=== PATIENT | male | born 1940 | race Hispanic/Latino ===

== ENCOUNTER 2019-01-01 06:49 | Inpatient (IN) | payer MEDICARE, OTHER ==
[2018-12-29 08:25] VITALS: BMI 30.1
[2019-01-01] MEDS ORDERED: Bacitracin Ointment 30 GM TUBE ONE (07:34)
[2019-01-01] MEDS ORDERED: EPINEPHrine 1 mg/ml (1:1000) Inj ONE (07:34)
[2019-01-01] MEDS ORDERED: Absorbable Gelatin Sponge Size 12-7 ONE (07:34)
[2019-01-01] MEDS ORDERED: Thrombin Topical 5,000 Int Units Spray Kit ONE (07:35)
[2019-01-01] MEDS ORDERED: Propofol 10 mg/ml Inj (20 ML) ONE (07:47)
[2019-01-01] MEDS ORDERED: Phenylephrine 10 mg/ml Inj ONE (07:47)
[2019-01-01] MEDS ORDERED: Rocuronium 10 mg/ml (5 ml) ONE ×2 (07:47→13:29)
[2019-01-01] MEDS ORDERED: Morphine 1 mg/ml preservative-free Inj(Duramorph) ONE (07:51)
--- NOTE | 2019-01-01 08:01 | CP.PCM.HP ---
<Yuly Kenny - Last Filed: 01/01/19 09:11> History of Present Illness - History of Present Illness History of Present Illness: CC: R hip pain 78 year old male patient, with PMHx of DM, HTN, GERD, seen and evaluated in [facility] surgery for R hip osteoarthritis. Patient states that his R hip has been causing pain for over two years. He has failed conservative treatment and now requires surgical intervention. Patient going to surgery today with Dr. Yoder for R total hip replacement. Patient states that he has had surgery in the past and denies any adverse reactions to anesthesia. NPO status was confirmed. Denies nausea/vomiting/fever/shortness of breath/chest pain. PMD: Dr. Jose Maria Smith PMHx: HTN, DM, GERD, BPH PSHx: R ankle ORIF, Inguinal hernia repair, Umbilical hernia repair, R shoulder ORIF Meds: Metformin, Losartan, Protonix SHx: Former cigarette use, current cigar use (1-2x per week), social alcohol use, denies drug use ALL: Levofloxacin (anaphylaxis) Present on Admission - Present on Admission Any Indicators Present on Admission: No Review of Systems - Constitutional Constitutional: As Per HPI - EENT Eyes: As Per HPI - Cardiovascular Cardiovascular: As Per HPI - Respiratory Respiratory: As Per HPI. absent: Cough, Wheezing - Gastrointestinal Gastrointestinal: As Per HPI - Musculoskeletal Additional comments: Right hip pain - Integumentary Integumentary: As Per HPI - Neurological Neurological: As Per HPI - Psychiatric Psychiatric: As Per HPI - Hematologic/Lymphatic Hematologic: As Per HPI Past Patient History - Past Medical History & Family History Past Medical History?: Yes - Past Social History Smoking Status: Former Smoker - CARDIAC Hx Hypertension: Yes - ENDOCRINE/METABOLIC Hx Endocrine Disorders: Yes Hx Diabetes Mellitus Type 2: Yes - SURGICAL HISTORY Hx Surgeries: Yes Meds Allergies/Adverse Reactions: Allergies Allergy/AdvReac Type Severity Reaction Status Date / Time levofloxacin [From Levaquin] Allergy ANAPHYLAXIS Verified 12/29/18 08:26 lactose AdvReac DIARRHEA Verified 12/29/18 08:26 Physical Exam - Constitutional Appears: Well, Non-toxic, No Acute Distress - Head Exam Head Exam: ATRAUMATIC, NORMOCEPHALIC - Eye Exam Eye Exam: Normal appearance Pupil Exam: NORMAL ACCOMODATION - ENT Exam ENT Exam: Mucous Membranes Moist - Respiratory Exam Respiratory Exam: Clear to Auscultation Bilateral, NORMAL BREATHING PATTERN - Cardiovascular Exam Cardiovascular Exam: REGULAR RHYTHM - GI/Abdominal Exam GI & Abdominal Exam: Normal Bowel Sounds, Soft - Extremities Exam Extremities exam: Negative for: calf tenderness Additional comments: Right hip tenderness with AROM and PROM - Neurological Exam Neurological exam: Alert, Normal Gait, Oriented x3 - Psychiatric Exam Psychiatric exam: Normal Affect, Normal Mood Results - Labs Result Diagrams: 01/01/19 07:35 Assessment & Plan - Assessment and Plan (Free Text) Assessment: 78 year old male patient, with PMHx of DM, HTN, GERD, with right hip osteoarthritis; surgery today for R THR. Plan: 1) Right hip osteoarthritis - Acute - Plan for OR today for R total hip replacement with Dr. Yoder - Patient medically optimized for surgery - Medical clearance from PMD in chart- CBC, CXR, EKG reviewed - NPO status confirmed - PT consult, reccs appreciated 2) DMII - Chronic - ACHS - Sliding scale 3) HTN - Chronic - C/w home meds after surgery 4) BPH - Chronic 4) DVT prophylaxis: -SCDs - Date & Time Date: 01/01/19 Time: 08:04 <Brissa Tamayo - Last Filed: 01/01/19 13:01> Results - Vital Signs Recent Vital Signs: Last Vital Signs Temp 97.9 F 01/01/19 08:00 Pulse 78 01/01/19 08:00 Resp 18 01/01/19 08:00 BP 165/82 H 01/01/19 08:00 Pulse Ox 100 01/01/19 08:00 - Labs Result Diagrams: 01/01/19 07:35 Labs: Laboratory Results - last 24 hr 01/01/19 01/01/19 01/01/19 07:35 07:35 08:40 WBC 7.3 RBC 4.22 L Hgb 13.5 Hct 38.4 MCV 91.2 MCH 32.0 H MCHC 35.2 RDW 12.5 Plt Count 202 MPV 8.4 Neut % (Auto) 76.2 H Lymph % (Auto) 16.2 L Dunn % (Auto) 6.3 Eos % (Auto) 1.1 Baso % (Auto) 0.2 Neut # (Auto) 5.6 Lymph # (Auto) 1.2 Dunn # (Auto) 0.5 Eos # (Auto) 0.1 Baso # (Auto) 0.0 POC Glucose (mg/dL) 127 H Blood Type A POSITIVE Blood Type Confirm Antibody Screen Negative Crossmatch See Detail BBK History Checked No verified bt 01/01/19 09:43 WBC RBC Hgb Hct MCV MCH MCHC RDW Plt Count MPV Neut % (Auto) Lymph % (Auto) Dunn % (Auto) Eos % (Auto) Baso % (Auto) Neut # (Auto) Lymph # (Auto) Dunn # (Auto) Eos # (Auto) Baso # (Auto) POC Glucose (mg/dL) Blood Type Blood Type Confirm A POSITIVE Antibody Screen Crossmatch BBK History Checked Attending/Attestation - Attestation I have personally seen and examined this patient.: Yes I have fully participated in the care of the patient.: Yes I have reviewed all pertinent clinical information: Yes Notes (Text): Right Hip Primary Osteoarthritis -plan for Right THR by Dr Yoder - pt failed conservative mgt - medically optimized for the surgery as an outpt - Pain mgt -PT/OT - DVT proph post op
[2019-01-01 08:05] LABS: BASO % 0.2 % (0.0-2.0); EOS # 0.1 K/uL (0.0-0.7); EOS % 1.1 % (0.0-4.0); HEMOGLOBIN 13.5 g/dL (12.0-18.0); LYMPH # 1.2 K/uL (1.0-4.3); LYMPH % 16.2 % (20.0-40.0); MEAN CELL VOLUME 91.2 fl (80.0-94.0); MEAN CORPUSCULAR HGB CONC 35.2 g/dL (33.0-37.0); MEAN PLATELET VOLUME 8.4 fl (7.2-11.7); MONO # 0.5 K/uL (0.0-0.8); MONO % 6.3 % (0.0-10.0); NEUT # 5.6 K/uL (1.8-7.0); NEUT % 76.2 % (50.0-75.0); RBC 4.22 Mil/uL (4.40-5.90); RED CELL DISTRIBUTION WIDTH 12.5 % (11.5-14.5); WHITE BLOOD COUNT 7.3 K/uL (4.8-10.8)
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
[2019-01-01] MEDS ORDERED: Lactated Ringer's 1,000 ML IV ONE ×3 (09:00→17:00)
[2019-01-01] MEDS ORDERED: Tranexamic Acid 1,000 MG in Sodium Chloride 0.9% 100 ML IVPB SCH (10:00)
[2019-01-01] MEDS ORDERED: Lidocaine 4% (Laryng-O-Jet) Kit MM ONE (10:30)
[2019-01-01] MEDS ORDERED: Succinylcholine Chloride 20 mg/ml Syr (5 ml) IV ONE (11:00)
[2019-01-01] MEDS ORDERED: Dexamethasone 4 mg/1 ml ONE (11:57)
[2019-01-01] MEDS ORDERED: Tranexamic Acid 100 mg/ml IV ONE (12:00)
[2019-01-01] MEDS ORDERED: ePHEDrine 50 mg/ml Inj ONE (12:36)
[2019-01-01] MEDS ORDERED: HEMOSTATIC MATRIX 10 ML DIS.NEEDLE TOP ONE (12:53)
[2019-01-01] MEDS ORDERED: Sodium Chloride 0.9% 500 ML IV ONE (13:00)
[2019-01-01] MEDS ORDERED: Neostigmine 1:1000 (1 mg/ml) Inj ONE (14:11)
--- NOTE | 2019-01-01 14:40 | RAD ---
Date of service: 01/01/2019 PROCEDURE: Intraoperative Fluoroscopy. HISTORY: RIGHT HIP FINDINGS: Fluoroscopic assistance was provided. Fluoroscopy time = 10.1 sec. Radiation dose = 2.30 mGy. Please refer to the operative report from ISMAEL Tavares.
[2019-01-01] MEDS ORDERED: oxyCODONE 5 mg Immediate Release Tab PO PRN (14:46)
[2019-01-01] MEDS ORDERED: HYDROmorphone 0.5 mg/0.5 ml ISec IVP PRN (14:52)
[2019-01-01] MEDS ORDERED: Lactated Ringer's 1,000 ML IV SCH (15:00)
--- NOTE | 2019-01-01 16:12 | RAD ---
PROCEDURE: Right Hip Radiographs. HISTORY: s/p R LOLI COMPARISON: None. FINDINGS: BONES: Status post right total hip replacement with satisfactory alignment. Expected postoperative changes within the surrounding soft tissues. JOINTS: Arthritic changes left hip SOFT TISSUES: As above OTHER FINDINGS: None. IMPRESSION: Status post right total hip replacement with satisfactory alignment. Expected postoperative changes within the surrounding soft tissues.
[2019-01-01] MEDS: Insulin Lispro (humaLOG) 100 Units/ml Inj SC SCH ×2 (17:30→22:55)
--- NOTE | 2019-01-01 17:45 | PCM.SURG1 ---
Surgeon's Initial Post Op Note - Surgeon's Notes Surgeon: Paresh Taxation Accountant: 1st assist ELVIE Herrera/ 2nd assist Cameron Delgado Type of Anesthesia: General Endo, Block Regional Anesthesia Administered By: Dr Marie Zafar Pre-Operative Diagnosis: Ostearthritis R Hip- post traumatic. impingement R Hip Operative Findings: post traumatic Ostearthritis R hip. synovitis R hip. iliopsoas contracture R Hip. impingment R hip- pincer type Post-Operative Diagnosis: as above\. capsular contracture Operation Performed: R THR- anterior approach. femoral neck osteotomy( separate modifier for preop and intraaop comoputer velia to equalize leg lengths). arthrotomy/synovectomy. release iliopsoas tendon/ capsular contracture. computer navigation Specimen/Specimens Removed: synovium/bone/cartilage Estimated Blood Loss: EBL {In ML}: 100 Blood Products Given: N/A Drains Used: No Drains Post-Op Condition: Fair Date of Surgery/Procedure: 01/01/19 Time of Surgery/Procedure: 12:20 (time in room/anaesthesia indcution time 10:55)
[2019-01-01] MEDS: ceFAZolin 2 GM in Sodium Chloride 0.9% 100 ML IVPB SCH ×2 (18:15→22:05)
--- NOTE | 2019-01-01 22:09 | CP.PCM.PCO ---
Assessment & Plan - Assessment and Plan (Free Text) Assessment: 78 y/o male POD 0 s/p Right RHR, evaluated post operatively. Denies pain, discomfort. Seen sitting up in bed, appears comfortable. Right LE examined, motor and sensory in tact, distal pulses +2/2, good capillary refill. Lungs clear BL with normal heart sounds. Hemodynamically stable.
--- NOTE | 2019-01-01 22:19 | OP ---
PROCEDURE DATE: 01/01/2019PREOPERATIVE DIAGNOSES: 1. Posttraumatic osteoarthritis of the right hip. 2. Pincer impingement of the right hip. OPERATIVE FINDINGS: 1. Posttraumatic osteoarthritis of the right hip. 2. Synovitis of the right hip. 3. Iliopsoas contracture of the right hip. 4. Impingement of the right hip, pincer type. 5. Capsular contracture. POSTOPERATIVE DIAGNOSES: 1. Posttraumatic osteoarthritis of the right hip. 2. Impingement of the right hip. 3. Synovitis of the right hip. 4. Iliopsoas contracture of the right hip. 5. Capsular contracture. OPERATIVE PROCEDURE: 1. Right total hip replacement arthroplasty, anterior approach. It should be noted that the patient had a preoperative leg length inequality. 2. Femoral neck osteotomy (separate modifier for this procedure was used because of the complexity of preoperative planning and intraoperative computer navigation to equalize leg lengths. 3. Arthrotomy, synovectomy. 4. Release of iliopsoas tendon. 5. Autograft bone graft. 6. Computer navigation. SURGEON: Eldon Yoder MD CASH ROOM CLERK: KERMIT Rodas, certified registered nursing assistant professor of forestry. SECOND HOSPICE SPIRITUAL CARE COORDINATOR: Mike Weeks PA-C SPECIMENS REMOVED: Synovium, bone and cartilage. ESTIMATED BLOOD LOSS: 100 mL. BLOOD PRODUCTS: No blood products given. DRAINS: No drains. POSTOPERATIVE CONDITION: Stable. OPERATIVE INDICATION: Blair Gomez is a 78-year-old gentleman who presents with severe right hip pain and restricted range of motion. The patient has been followed by [facility] conservatively for greater than 8 months with activity modification, heel insert, various injections about the right hip, physical therapy, chiropractic and anti-inflammatory medication. The patient failed all conservative modalities and after a thorough discussion of the pros, cons, risks and benefits of surgical approach, the possibility of mechanical failure, infection, leg length inequality, thromboembolic disease, even was discussed. The concept that since the right lower extremity is approximately 1/2 inch to 3/8 inch short, every effort will be made to lengthen the right lower extremity using computer navigation. Again, the possibility of mechanical failure, infection, thromboembolic disease, nerve injury, recurrent dislocation discussed. The patient understands the discomfort and wished the surgery to be accomplished. OPERATIVE PROCEDURE: After having obtained informed consent in the above fashion, after the satisfactory induction of general and regional anesthesia by Dr. Khadar Zafar, after having identified side, site and procedure, the right lower extremity was prepped and free draped in the usual fashion for lower extremity surgery. The AMIS traction positioner was accomplished. Preoperative planning had been accomplished with respect to Mr. Gomez's leg length inequality. The coordination with the ListRunner computer navigation was accomplished and this deserved a separate modifier for the level and the execution of the femoral neck osteotomy. After sterilely prepping and draping the right lower extremity and after the right lower extremity was placed in the AMIS traction with the considerable panniculus being reflected out of the operative field, under the surgeon's direction, the fluoroscope was positioned, video images were generated, therapeutic decisions were made therefrom. The C-arm verified the fact that the right lower extremity was approximately 3/8th to 1/2 inch short and the computer navigation and the preoperative planning were employed to define the femoral neck osteotomy length and position. This having been accomplished, the topographic anatomy of the right hip was marked after sterilely prepping and draping. The anterior superior iliac spine was marked for use of the ListRunner computer navigation. At a point one fingerbreadth distal to the anterior-superior iliac spine and four fingerbreadths distal to that the Anglin-Dejesus interval was identified to stay away from and the tensor fascia femoris muscle was identified. At a point approximately three fingerbreadths posterior to the anterior-superior iliac spine, an incision was drawn with slight posterior added to 4-1/2 inches in extent superficial to the tensor fascia femoris muscle. After having identified side, site and procedure, after having obtained informed consent and after having performed the critical pause and time-out, the incision which had been described was incised. Skin incision was carried down through the skin and subcutaneous tissue. The hemostasis was controlled with the Aquamantys. The fascia was divided using the electrocautery. The fascia was clearly divided. Great care was taken that the patient was paralyzed and the tensor fascia femoris muscle was taken down from the investing fascia. Hemostasis was controlled with the Aquamantys. The Medacta modified Adrián-Kai retractor was placed vertically identifying the posterior border of the rectus femoris muscle. This having been accomplished, hemostasis controlled with the Aquamantys. The lateral branch, the anterior branch of the lateral femoral circumflex vessels were identified. The Medacta retractor was placed deeper to reflect the rectus femoris and the iliocapsularis was identified. The fascia was identified and the lateral femoral circumflex vessels and particularly, the anterior branch of the lateral femoral circumflex vessels were identified. Suture ligatures were placed. Suture ligature was used to control the vessels. This having been accomplished, the fascia was incised. Hemostasis was controlled with the Aquamantys as well as suture ligatures. At this point in time, a capsulotomy was accomplished beginning at the lateral aspect of the acetabulum, extending medially to the border of the iliocapsularis with the limb in external rotation. This having been accomplished, the capsular incision was accomplished to the point of the intertrochanteric line of the trochanteric tubercle. Further elevation was accomplished using electrocautery and the capsule flap was elevated. The capsular flap superiorly was divided and a portion of the capsule was excised. Hemostasis was controlled with the Aquamantys. This having been accomplished, the capsular flap was tagged using interrupted Vicryl suture. This having been accomplished, the Charnley retractor was placed as well as the modified Medacta Hohmann retractor. There was found to be evidence of pincer impingement. Arthrotomy and excision of the labrum was accomplished. Prior to this, again under the surgeon's direction and using the Intellijoint, the level of the femoral neck osteotomy was accomplished using the oscillating saw. The extremity was were brought back into neutral and at the incisura of the greater trochanteric fossa extending to the area of demarcated by preoperative planning and by computer navigation, femoral neck osteotomy was accomplished. The lower extremity was externally rotated. The corkscrew was placed in the femoral head and the femoral head was removed from the acetabulum and measured to be 50 mm. This having been accomplished, again the pulvinar and the synovium were identified. An extensive arthrotomy and synovectomy of the hip joint were accomplished as well as excision of the acetabular labrum. This having been accomplished, the two turns of traction were placed and sequential reaming was carried out. Prior to carrying out the sequential reaming, the iliac crest had been identified, two incisions were made according to template and the screws were placed in the iliac crest, this was for computer navigation. The optical accelerometer was placed and the anterior superior iliac spine was placed in the area of the left and registration was accomplished in the area of the left anterior superior iliac spine and then the right anterior superior iliac spine to determine the frontal plane of the pelvis. This having been accomplished, the wound was thoroughly irrigated. The electrocautery was used to define the acetabular margin and the capsulotomy having been accomplished, the femoral head and neck having been removed, the Charnley retractor was placed. The Medacta acetabular retractor was placed. The pulvinar was excised. Extensive synovectomy of the hip joint was accomplished as well as excision of labrum. Sequential reaming was carried out at this point from 50 mm through 54 mm in approximately 40 degrees of abduction and 18 degrees of anteversion. This was verified and at this point in time computer navigation was carried out to verify component position. Reaming having been accomplished with the reamer in the acetabulum, the sensor was placed on the reamer and verification of position was accomplished at 41 degrees of abduction and approximately 18 degrees of anteversion. The reaming was denuded of articular cartilage. At this point in time, the autograft bone graft was accomplished to the acetabulum and the Medacta 54-mm cup was impacted. The impactors again computer navigation was accomplished. The optical accelerometer was placed. The computer navigation was accomplished with the sensor and verification of the cup was found to be approximately 41 degrees to 18 degrees of anteversion. Impaction was found to be excellent. Bone grafting had been accomplished to the acetabulum. Attention was now turned to the femur. With external rotation of the femur, the iliopsoas contracture and capsular contracture were identified. The capsular contracture was released, the iliopsoas tendon was released as well as the iliofemoral ligament and the ischial femoral ligament. Great care was taken to accomplish hemostasis with the Aquamantys. At this point in time, full external rotation to 160 degrees was accomplished and flexion of the femur was accomplished. The Medacta retractors were placed and the 10 degrees of abduction was accomplished. The proximal femur was identified. The bur was used to remove the bridge of bone between the neck and the trochanter that a box chisel would accomplish. The canal was found using a rasp. Sequential reaming was carried out to #5 femoral component. The #5 femoral component was employed. The standard neck, 28 mm ceramic head and 54 mm polyethylene outer bearing for the dual mobility construct was accomplished. It should be noted that trialling had been accomplished with a neutral 28 mm head, neutral neck and the 54 mm outer bearing. This was reduced and found to be stable in all planes. This having been accomplished, the hip was again dislocated. The wound was thoroughly irrigated. Hemostasis was controlled with the Aquamantys as well as thrombin and Gelfoam. This having been accomplished the collared #5 Medacta stem was introduced. The 28 mm ceramic head was employed with the 54 mm outer bearing. The hip was reduced and found to be stable in all planes. Hemostasis controlled with the Aquamantys. Iliopsoas tendon had been released. Thrombin and Gelfoam were employed as well as FloSeal. The wound was thoroughly irrigated. Autograft bone grafting was accomplished to the femur. At this point in time, closure was accomplished using 0 Quill for the fascia on the tensor fascia femoris, 0 Vicryl, 2-0 Vicryl, savanna for skin, Vicryl and nylon for the punctures for the pins for the computer navigation which had been removed. Compression dressing was applied. Under the surgeon's direction at this point in time, the fluoroscope was positioned, video images were generated, therapeutic decisions were made therefrom. Excellent position of the construct was defined. Leg lengths were found to be equal again necessitating the additional modifier for the femoral neck osteotomy because a preoperative planning, and intraoperative computer navigation. Eldon Yoder MD
[2019-01-01] MEDS: Docusate-Senna 50 mg-8.6 mg Tab PO SCH (22:53)
[2019-01-02] MEDS: Sodium Chloride 0.9% 1,000 ML IV SCH ×2 (01:00→03:20)
[2019-01-02] MEDS: ceFAZolin 2 GM in Sodium Chloride 0.9% 100 ML IVPB SCH ×2 (03:41→14:59)
[2019-01-02 05:55] LABS: HEMOGLOBIN 11.1 g/dL (12.0-18.0); MEAN CELL VOLUME 92.4 fl (80.0-94.0); MEAN CORPUSCULAR HEMOGLOBIN 32.5 pg (27.0-31.0); MEAN CORPUSCULAR HGB CONC 35.2 g/dL (33.0-37.0); RBC 3.4 Mil/uL (4.40-5.90); RED CELL DISTRIBUTION WIDTH 12.4 % (11.5-14.5); WHITE BLOOD COUNT 11.2 K/uL (4.8-10.8)
[2019-01-02 06:04] LABS: BLOOD UREA NITROGEN 17 mg/dl (9-20); CALCIUM 8.5 mg/dL (8.4-10.2); GFR NON-AFRICAN AMERICAN > 60
--- NOTE | 2019-01-02 07:16 | CP.PCM.PN ---
Subjective - Date & Time of Evaluation Date of Evaluation: 01/02/19 Time of Evaluation: 07:14 - Subjective Subjective: Patient complaining of burning with urination, hesitancy, and frequency. He says he does not usually have this issue. Denies CP/SOB/dizziness/numbness/tingling. Pain in hip is controlled. Objective - Vital Signs/Intake and Output Vital Signs (last 24 hours): Temp Pulse Resp BP Pulse Ox 97.9 F 77 20 133/62 97 01/02/19 05:00 01/02/19 05:00 01/02/19 05:00 01/02/19 05:00 01/02/19 05:00 - Medications Medications: Current Medications Acetaminophen (Tylenol 325mg Tab) 975 mg PO Q8 [facility] Stop: 01/03/19 17:01 Last Admin: 01/02/19 01:49 Dose: Not Given Enoxaparin Sodium (Lovenox) 40 mg SC DAILY [facility]; Protocol Ferrous Sulfate (Feosol) 325 mg PO BID [facility] Last Admin: 01/01/19 18:29 Dose: 325 mg Folic Acid (Folic Acid) 1 mg PO DAILY [facility] Sodium Chloride (Sodium Chloride 0.9%) 1,000 mls @ 100 mls/hr IV .Q10H [facility] Stop: 01/02/19 14:47 Last Admin: 01/02/19 03:20 Dose: 100 mls/hr Lactated Ringer's (Lactated Ringer's) 1,000 mls @ 75 mls/hr IV .[id number] [facility] Cefazolin Sodium 2 gm/ Sodium (Chloride) 100 mls @ 100 mls/hr IVPB Q8@0400,1200,2000 [facility]; Protocol Stop: 01/02/19 12:59 Last Admin: 01/02/19 03:41 Dose: 100 mls/hr Insulin Human Lispro (Humalog) 0 units SC ACHS [facility]; Protocol Last Admin: 01/01/19 22:55 Dose: Not Given Losartan Potassium (Cozaar) 25 mg PO DAILY [facility] Morphine Sulfate (Morphine) 2 mg IVP Q4 PRN PRN Reason: Pain, severe (8-10) Multivitamins/Minerals (Therapeutic-M Tab) 1 tab PO DAILY [facility] Ondansetron HCl (Zofran Inj) 4 mg IVP Q4 PRN PRN Reason: Nausea/Vomiting Oxycodone HCl (Oxycodone Immediate Release Tab) 10 mg PO Q4 PRN PRN Reason: Pain, moderate (4-7) Oxycodone HCl (Oxycodone Immediate Release Tab) 5 mg PO Q4 PRN PRN Reason: Pain, Mild (1-3) Pantoprazole Sodium (Protonix Ec Tab) 40 mg PO DAILY [facility] Senna/Docusate Sodium (Senokot S 50 Mg-8.6 Mg) 2 tab PO HS [facility] Last Admin: 01/01/19 22:53 Dose: 2 tab - Labs Labs: 01/02/19 04:12 01/02/19 04:12 - Extremities Exam Additional comments: Right thigh: soft, Mild tenderness, no visible drainage. +ROM ankle/toes, +DP/PT pulses calves soft NT neg homans sensation intact Assessment and Plan (1) Osteoarthritis of right hip Assessment & Plan: POD#1 s/p THR urinary symptoms, likely retention, will check u/a, urine cx PT/OT d/c planning to TCU VTE proph d/w , agrees with above Status: Acute
[2019-01-02] MEDS: Insulin Lispro (humaLOG) 100 Units/ml Inj SC SCH ×4 (08:42→22:00)
[2019-01-02] MEDS: Enoxaparin 40 mg Syringe SC SCH (08:42)
[2019-01-02] MEDS: Multivitamin With Minerals Tab PO SCH (08:43)
[2019-01-02] MEDS: Pantoprazole 40 mg EC Tab PO SCH (08:43)
[2019-01-02] MEDS: oxyCODONE 10 mg Immediate Release Tab PO PRN ×3 (08:54→21:04)
--- NOTE | 2019-01-02 09:12 | CP.PCM.PN ---
<ZoyaYuly - Last Filed: 01/02/19 09:35> Subjective - Date & Time of Evaluation Date of Evaluation: 01/02/19 Time of Evaluation: 09:09 - Subjective Subjective: Patient seen and evaluated at bedside this AM. Patient resting comfortably, in NAD, pain is well controlled at this time. Patient states that he was able to void at 3am this morning. Denies nausea/vomiting/fever/shortness of breath/chest pain. Objective - Vital Signs/Intake and Output Vital Signs (last 24 hours): Temp Pulse Resp BP Pulse Ox 98.2 F 78 20 153/73 H 98 01/02/19 08:16 01/02/19 08:41 01/02/19 08:16 01/02/19 08:41 01/02/19 08:16 - Medications Medications: Current Medications Acetaminophen (Tylenol 325mg Tab) 975 mg PO Q8 [facility] Stop: 01/03/19 17:01 Last Admin: 01/02/19 08:46 Dose: 975 mg Enoxaparin Sodium (Lovenox) 40 mg SC DAILY [facility]; Protocol Last Admin: 01/02/19 08:42 Dose: 40 mg Ferrous Sulfate (Feosol) 325 mg PO BID [facility] Last Admin: 01/02/19 08:41 Dose: 325 mg Folic Acid (Folic Acid) 1 mg PO DAILY [facility] Last Admin: 01/02/19 08:41 Dose: 1 mg Sodium Chloride (Sodium Chloride 0.9%) 1,000 mls @ 100 mls/hr IV .Q10H [facility] Stop: 01/02/19 14:47 Last Admin: 01/02/19 03:20 Dose: 100 mls/hr Lactated Ringer's (Lactated Ringer's) 1,000 mls @ 75 mls/hr IV .[id number] [facility] Cefazolin Sodium 2 gm/ Sodium (Chloride) 100 mls @ 100 mls/hr IVPB Q8@0400,1200,2000 [facility]; Protocol Stop: 01/02/19 12:59 Last Admin: 01/02/19 03:41 Dose: 100 mls/hr Insulin Human Lispro (Humalog) 0 units SC ACHS [facility]; Protocol Last Admin: 01/02/19 08:42 Dose: Not Given Losartan Potassium (Cozaar) 25 mg PO DAILY [facility] Last Admin: 01/02/19 08:41 Dose: 25 mg Morphine Sulfate (Morphine) 2 mg IVP Q4 PRN PRN Reason: Pain, severe (8-10) Multivitamins/Minerals (Therapeutic-M Tab) 1 tab PO DAILY [facility] Last Admin: 01/02/19 08:43 Dose: 1 tab Ondansetron HCl (Zofran Inj) 4 mg IVP Q4 PRN PRN Reason: Nausea/Vomiting Oxycodone HCl (Oxycodone Immediate Release Tab) 10 mg PO Q4 PRN PRN Reason: Pain, moderate (4-7) Last Admin: 01/02/19 08:54 Dose: 10 mg Oxycodone HCl (Oxycodone Immediate Release Tab) 5 mg PO Q4 PRN PRN Reason: Pain, Mild (1-3) Pantoprazole Sodium (Protonix Ec Tab) 40 mg PO DAILY [facility] Last Admin: 01/02/19 08:43 Dose: 40 mg Senna/Docusate Sodium (Senokot S 50 Mg-8.6 Mg) 2 tab PO [facility] Last Admin: 01/01/19 22:53 Dose: 2 tab - Labs Labs: 01/02/19 04:12 01/02/19 04:12 - Constitutional Appears: Non-toxic, No Acute Distress - Head Exam Head Exam: ATRAUMATIC, NORMOCEPHALIC - Eye Exam Eye Exam: Normal appearance Pupil Exam: NORMAL ACCOMODATION - Respiratory Exam Respiratory Exam: Clear to Ausculation Bilateral, NORMAL BREATHING PATTERN - Cardiovascular Exam Cardiovascular Exam: REGULAR RHYTHM - GI/Abdominal Exam GI & Abdominal Exam: Soft, Normal Bowel Sounds - Extremities Exam Extremities Exam: Normal Capillary Refill - Neurological Exam Neurological Exam: Alert, Awake, Oriented x3 - Psychiatric Exam Psychiatric exam: Normal Affect, Normal Mood Assessment and Plan - Assessment and Plan (Free Text) Assessment: 78 year old male patient, with PMHx of DM, HTN, GERD, with POD#1 R THR Plan: 1) Right hip osteoarthritis - Acute - POD#[address] Yoder - C/w pain management - OT/PT consult, reccs appreciated 2) DMII - Chronic - ACHS - Sliding scale 3) HTN - Chronic - C/w Losartan 4) BPH - Chronic 4) DVT prophylaxis: - SCDs - Lovenox 40mg SC 5) Code status - Full code - Surrogate decision maker-spouse Gayathri <Leatha Lainez - Last Filed: 01/03/19 11:42> Objective - Vital Signs/Intake and Output Vital Signs (last 24 hours): Temp Pulse Resp BP Pulse Ox 99.0 F 94 H 19 128/70 98 01/03/19 08:03 01/03/19 10:30 01/03/19 08:03 01/03/19 10:30 01/03/19 10:30 - Medications Medications: Current Medications Acetaminophen (Tylenol 325mg Tab) 975 mg PO Q8 [facility] Stop: 01/03/19 17:01 Last Admin: 01/03/19 09:36 Dose: 975 mg Enoxaparin Sodium (Lovenox) 40 mg SC DAILY [facility]; Protocol Last Admin: 01/03/19 09:38 Dose: 40 mg Ferrous Sulfate (Feosol) 325 mg PO BID [facility] Last Admin: 01/03/19 09:39 Dose: 325 mg Folic Acid (Folic Acid) 1 mg PO DAILY [facility] Last Admin: 01/03/19 09:39 Dose: 1 mg Lactated Ringer's (Lactated Ringer's) 1,000 mls @ 75 mls/hr IV .[id number] [facility] Insulin Human Lispro (Humalog) 0 units SC ACHS [facility]; Protocol Last Admin: 01/03/19 09:33 Dose: Not Given Losartan Potassium (Cozaar) 25 mg PO DAILY [facility] Last Admin: 01/03/19 09:39 Dose: 25 mg Morphine Sulfate (Morphine) 2 mg IVP Q4 PRN PRN Reason: Pain, severe (8-10) Multivitamins/Minerals (Therapeutic-M Tab) 1 tab PO DAILY [facility] Last Admin: 01/03/19 09:38 Dose: 1 tab Ondansetron HCl (Zofran Inj) 4 mg IVP Q4 PRN PRN Reason: Nausea/Vomiting Oxycodone HCl (Oxycodone Immediate Release Tab) 10 mg PO Q4 PRN PRN Reason: Pain, moderate (4-7) Last Admin: 01/02/19 21:04 Dose: 10 mg Oxycodone HCl (Oxycodone Immediate Release Tab) 5 mg PO Q4 PRN PRN Reason: Pain, Mild (1-3) Pantoprazole Sodium (Protonix Ec Tab) 40 mg PO DAILY [facility] Last Admin: 01/03/19 09:38 Dose: 40 mg Senna/Docusate Sodium (Senokot S 50 Mg-8.6 Mg) 2 tab PO HS [facility] Last Admin: 01/02/19 21:08 Dose: 2 tab - Labs Labs: 01/03/19 05:50 01/03/19 05:50 Attending/Attestation - Attestation I have personally seen and examined this patient.: Yes I have fully participated in the care of the patient.: Yes I have reviewed all pertinent clinical information, including history, physical exam and plan: Yes Notes (Text): 01/03/19 11:42 agree with findings and plan as above.
[2019-01-02 19:05] LABS: URINE BILIRUBIN NEGATIVE (NEGATIVE); URINE BLOOD NEGATIVE (NEGATIVE); URINE CLARITY CLEAR (Clear); URINE COLOR YELLOW (YELLOW); URINE GLUCOSE (UA) NEG (NEGATIVE); URINE LEUKOCYTE ESTERASE NEG Leu/uL (Negative); URINE PROTEIN NEGATIVE (NEGATIVE); URINE UROBILINOGEN 0.2-1.0 mg/dL (0.2-1.0)
[2019-01-02] MEDS: Docusate-Senna 50 mg-8.6 mg Tab PO SCH (21:08)
[2019-01-03 06:52] LABS: HEMOGLOBIN 9.9 g/dL (12.0-18.0); MEAN CELL VOLUME 93.1 fl (80.0-94.0); MEAN CORPUSCULAR HEMOGLOBIN 32.7 pg (27.0-31.0); MEAN CORPUSCULAR HGB CONC 35.2 g/dL (33.0-37.0); RBC 3.02 Mil/uL (4.40-5.90); RED CELL DISTRIBUTION WIDTH 12.4 % (11.5-14.5); WHITE BLOOD COUNT 9.9 K/uL (4.8-10.8)
[2019-01-03 07:09] LABS: BLOOD UREA NITROGEN 17 mg/dl (9-20); CALCIUM 8.4 mg/dL (8.4-10.2); GFR NON-AFRICAN AMERICAN > 60
--- NOTE | 2019-01-03 08:49 | CP.PCM.PN ---
Subjective - Date & Time of Evaluation Date of Evaluation: 01/03/19 Time of Evaluation: 07:30 - Subjective Subjective: Patient seen and examined at bedside comfortable. Pain is minimal this AM. Able to tolerate PT yesterday, ambulating with RW down hallways. No new complaints. Objective - Vital Signs/Intake and Output Vital Signs (last 24 hours): Temp Pulse Resp BP Pulse Ox 99.0 F 88 19 122/62 96 01/03/19 08:03 01/03/19 08:03 01/03/19 08:03 01/03/19 08:03 01/03/19 08:03 - Medications Medications: Current Medications Acetaminophen (Tylenol 325mg Tab) 975 mg PO Q8 [facility] Stop: 01/03/19 17:01 Last Admin: 01/03/19 00:38 Dose: 975 mg Enoxaparin Sodium (Lovenox) 40 mg SC DAILY [facility]; Protocol Last Admin: 01/02/19 08:42 Dose: 40 mg Ferrous Sulfate (Feosol) 325 mg PO BID [facility] Last Admin: 01/02/19 16:37 Dose: 325 mg Folic Acid (Folic Acid) 1 mg PO DAILY [facility] Last Admin: 01/02/19 08:41 Dose: 1 mg Lactated Ringer's (Lactated Ringer's) 1,000 mls @ 75 mls/hr IV .[id number] [facility] Insulin Human Lispro (Humalog) 0 units SC ACHS [facility]; Protocol Last Admin: 01/02/19 22:00 Dose: Not Given Losartan Potassium (Cozaar) 25 mg PO DAILY [facility] Last Admin: 01/02/19 08:41 Dose: 25 mg Morphine Sulfate (Morphine) 2 mg IVP Q4 PRN PRN Reason: Pain, severe (8-10) Multivitamins/Minerals (Therapeutic-M Tab) 1 tab PO DAILY [facility] Last Admin: 01/02/19 08:43 Dose: 1 tab Ondansetron HCl (Zofran Inj) 4 mg IVP Q4 PRN PRN Reason: Nausea/Vomiting Oxycodone HCl (Oxycodone Immediate Release Tab) 10 mg PO Q4 PRN PRN Reason: Pain, moderate (4-7) Last Admin: 01/02/19 21:04 Dose: 10 mg Oxycodone HCl (Oxycodone Immediate Release Tab) 5 mg PO Q4 PRN PRN Reason: Pain, Mild (1-3) Pantoprazole Sodium (Protonix Ec Tab) 40 mg PO DAILY [facility] Last Admin: 01/02/19 08:43 Dose: 40 mg Senna/Docusate Sodium (Senokot S 50 Mg-8.6 Mg) 2 tab PO HS [facility] Last Admin: 01/02/19 21:08 Dose: 2 tab - Labs Labs: 01/03/19 05:50 01/03/19 05:50 - Extremities Exam Additional comments: R hip: Dressings CDI sensation intact SP/DP/TN motor intact EHL/FHL/TA/G pedal pulses intact calves soft NT b/l Assessment and Plan (1) Osteoarthritis of right hip Assessment & Plan: POD#2 s/p R LOLI doing very well -PT/OT -DVT ppx -orthopedically stable for d/c to TCU today -above d/w Dr. Yoder in agreement Status: Acute
[2019-01-03] MEDS: Insulin Lispro (humaLOG) 100 Units/ml Inj SC SCH ×4 (09:33→22:23)
[2019-01-03] MEDS: Pantoprazole 40 mg EC Tab PO SCH (09:38)
[2019-01-03] MEDS: Enoxaparin 40 mg Syringe SC SCH (09:38)
[2019-01-03] MEDS: Multivitamin With Minerals Tab PO SCH (09:38)
--- NOTE | 2019-01-03 09:57 | RAD ---
Date of service: 01/02/2019 HISTORY: Fever, post-op COMPARISON: None available. FINDINGS: LUNGS: No active pulmonary disease. PLEURA: No significant pleural effusion identified, no pneumothorax apparent. CARDIOVASCULAR: Calcific atherosclerotic changes are seen related to the thoracic aorta. Normal cardiac size. No pulmonary vascular congestion. OSSEOUS STRUCTURES: No significant abnormalities. VISUALIZED UPPER ABDOMEN: Limited elevation left hemidiaphragm. OTHER FINDINGS: None. IMPRESSION: No acute infiltrate or pleural effusion bilaterally. Limited elevation left hemidiaphragm. Normal cardiac size. No pulmonary vascular congestion.
--- NOTE | 2019-01-03 13:16 | CP.PCM.DIS ---
<Yuly Kenny - Last Filed: 01/03/19 13:24> Provider - Provider Date of Admission: 01/01/19 14:46 Attending physician: Brissa Tamayo MD Consults: 01/01/19 12:57 Orthopedic Consult Routine Comment: Consulting Provider: Eldon Yoder III Consulting Physician: Eldon Yoder III Reason for Consult: Right Hip Pain, for THR 01/01/19 14:46 Case Management Referral Routine Comment: Physician Instructions: to TCU Reason For Exam: Reason for Referral: Discharge Planning Time Spent in preparation of Discharge (in minutes): 30 Hospital Course - Lab Results Lab Results: Most Recent Lab Values WBC 9.9 K/uL (4.8-10.8) 01/03/19 05:50 RBC 3.02 Mil/uL (4.40-5.90) L 01/03/19 05:50 Hgb 9.9 g/dL (12.0-18.0) L 01/03/19 05:50 Hct 28.1 % (35.0-51.0) L 01/03/19 05:50 MCV 93.1 fl (80.0-94.0) 01/03/19 05:50 MCH 32.7 pg (27.0-31.0) H 01/03/19 05:50 MCHC 35.2 g/dL (33.0-37.0) 01/03/19 05:50 RDW 12.4 % (11.5-14.5) 01/03/19 05:50 Plt Count 137 K/uL (130-400) 01/03/19 05:50 MPV 8.4 fl (7.2-11.7) 01/01/19 07:35 Neut % (Auto) 76.2 % (50.0-75.0) H 01/01/19 07:35 Lymph % (Auto) 16.2 % (20.0-40.0) L 01/01/19 07:35 Reynolds % (Auto) 6.3 % (0.0-10.0) 01/01/19 07:35 Eos % (Auto) 1.1 % (0.0-4.0) 01/01/19 07:35 Baso % (Auto) 0.2 % (0.0-2.0) 01/01/19 07:35 Neut # (Auto) 5.6 K/uL (1.8-7.0) 01/01/19 07:35 Lymph # (Auto) 1.2 K/uL (1.0-4.3) 01/01/19 07:35 Reynolds # (Auto) 0.5 K/uL (0.0-0.8) 01/01/19 07:35 Eos # (Auto) 0.1 K/uL (0.0-0.7) 01/01/19 07:35 Baso # (Auto) 0.0 K/uL (0.0-0.2) 01/01/19 07:35 Sodium 136 mmol/l (132-148) 01/03/19 05:50 Potassium 3.8 MMOL/L (3.6-5.0) 01/03/19 05:50 Chloride 100 mmol/L (98-107) 01/03/19 05:50 Carbon Dioxide 26 mmol/L (22-30) 01/03/19 05:50 Anion Gap 14 (10-20) 01/03/19 05:50 BUN 17 mg/dl (9-20) 01/03/19 05:50 Creatinine 1.0 mg/dl (0.8-1.5) 01/03/19 05:50 Est GFR ( Amer) > 60 01/03/19 05:50 Est GFR (Non-Af Amer) > 60 01/03/19 05:50 POC Glucose (mg/dL) 109 mg/dL (65-110) 01/03/19 10:45 Random Glucose 127 mg/dL (75-110) H 01/03/19 05:50 Calcium 8.4 mg/dL (8.4-10.2) 01/03/19 05:50 25-OH Vitamin D Total 68.1 NG/ML (30.0-100.0) 01/02/19 04:12 Urine Color Yellow (YELLOW) 01/02/19 18:54 Urine Clarity Clear (Clear) 01/02/19 18:54 Urine pH 6.0 (5.0-8.0) 01/02/19 18:54 Ur Specific [place] 1.013 (1.003-1.030) 01/02/19 18:54 Urine Protein Negative mg/dL (NEGATIVE) 01/02/19 18:54 Urine Glucose (UA) Neg mg/dL (NEGATIVE) 01/02/19 18:54 Urine Ketones Negative mg/dL (NEGATIVE) 01/02/19 18:54 Urine Blood Negative (NEGATIVE) 01/02/19 18:54 Urine Nitrate Negative (NEGATIVE) 01/02/19 18:54 Urine Bilirubin Negative (NEGATIVE) 01/02/19 18:54 Urine Urobilinogen 0.2-1.0 mg/dL (0.2-1.0) 01/02/19 18:54 Ur Leukocyte Esterase Neg [place]/uL (Negative) 01/02/19 18:54 Urine RBC (Auto) < 1 /hpf (0-3) 01/02/19 18:54 Urine Microscopic WBC 1 /hpf (0-5) 01/02/19 18:54 Blood Type A POSITIVE 01/01/19 07:35 Blood Type Confirm A POSITIVE 01/01/19 09:43 Antibody Screen Negative 01/01/19 07:35 Crossmatch See Detail 01/01/19 07:35 BBK History Checked No verified bt 01/01/19 07:35 - Hospital Course Hospital Course: 78 year old male patient, with PMHx of DM, HTN, GERD, seen and evaluated for right hip osteoarthritis. During his hospital course, patient underwent right total hip replacement with Dr. Yoder (DOS: 01/01/2019). On day of discharge, patient's pain was well controlled, patient successfully participated in physical therapy, and patient stable for discharge to TCU for continued rehabilitation.Upon discharge, patient to follow up with Dr. Yoder for continued treatment. 1) Right hip osteoarthritis - Acute - POD#[address] Yoder - C/w pain management - C/w PT - Date & Time of H&P Date of H&P: 01/03/19 Time of H&P: 13:22 Discharge Exam - Head Exam Head Exam: ATRAUMATIC, NORMOCEPHALIC - Eye Exam Eye Exam: Normal appearance Pupil Exam: NORMAL ACCOMODATION - Respiratory Exam Respiratory Exam: Clear to PA & Lateral, NORMAL BREATHING PATTERN - Cardiovascular Exam Cardiovascular Exam: REGULAR RHYTHM - GI/Abdominal Exam GI & Abdominal Exam: Normal Bowel Sounds, Unremarkable - Extremities Exam Additional comments: Right leg dressing clean/dry/intact no pain with calf compression - Neurological Exam Neurological exam: Alert, Oriented x3 - Psychiatric Exam Psychiatric exam: Normal Affect, Normal Mood - Skin Skin Exam: Normal Color, Warm Discharge Plan - Follow Up Plan Condition: GOOD Disposition: HOME/ ROUTINE Instructions: Osteoarthritis (DC), Total Hip Replacement (DC) Additional Instructions: PMD: Dr. Jose Maria Smith Referrals: Eldon Yoder III, MD [Staff Provider] - <Brissa Tamayo - Last Filed: 01/03/19 17:21> Provider - Provider Date of Admission: 01/01/19 14:46 Attending physician: Brissa Tamayo MD Consults: 01/01/19 12:57 Orthopedic Consult Routine Comment: Consulting Provider: Eldon Yoder III Consulting Physician: Eldon Yoder III Reason for Consult: Right Hip Pain, for THR 01/01/19 14:46 Case Management Referral Routine Comment: Physician Instructions: to TCU Reason For Exam: Reason for Referral: Discharge Planning Hospital Course - Lab Results Lab Results: Most Recent Lab Values WBC 9.9 K/uL (4.8-10.8) 01/03/19 05:50 RBC 3.02 Mil/uL (4.40-5.90) L 01/03/19 05:50 Hgb 9.9 g/dL (12.0-18.0) L 01/03/19 05:50 Hct 28.1 % (35.0-51.0) L 01/03/19 05:50 MCV 93.1 fl (80.0-94.0) 01/03/19 05:50 MCH 32.7 pg (27.0-31.0) H 01/03/19 05:50 MCHC 35.2 g/dL (33.0-37.0) 01/03/19 05:50 RDW 12.4 % (11.5-14.5) 01/03/19 05:50 Plt Count 137 K/uL (130-400) 01/03/19 05:50 MPV 8.4 fl (7.2-11.7) 01/01/19 07:35 Neut % (Auto) 76.2 % (50.0-75.0) H 01/01/19 07:35 Lymph % (Auto) 16.2 % (20.0-40.0) L 01/01/19 07:35 Reynolds % (Auto) 6.3 % (0.0-10.0) 01/01/19 07:35 Eos % (Auto) 1.1 % (0.0-4.0) 01/01/19 07:35 Baso % (Auto) 0.2 % (0.0-2.0) 01/01/19 07:35 Neut # (Auto) 5.6 K/uL (1.8-7.0) 01/01/19 07:35 Lymph # (Auto) 1.2 K/uL (1.0-4.3) 01/01/19 07:35 Reynolds # (Auto) 0.5 K/uL (0.0-0.8) 01/01/19 07:35 Eos # (Auto) 0.1 K/uL (0.0-0.7) 01/01/19 07:35 Baso # (Auto) 0.0 K/uL (0.0-0.2) 01/01/19 07:35 Sodium 136 mmol/l (132-148) 01/03/19 05:50 Potassium 3.8 MMOL/L (3.6-5.0) 01/03/19 05:50 Chloride 100 mmol/L (98-107) 01/03/19 05:50 Carbon Dioxide 26 mmol/L (22-30) 01/03/19 05:50 Anion Gap 14 (10-20) 01/03/19 05:50 BUN 17 mg/dl (9-20) 01/03/19 05:50 Creatinine 1.0 mg/dl (0.8-1.5) 01/03/19 05:50 Est GFR ( Amer) > 60 01/03/19 05:50 Est GFR (Non-Af Amer) > 60 01/03/19 05:50 POC Glucose (mg/dL) 176 mg/dL (65-110) H 01/03/19 15:43 Random Glucose 127 mg/dL (75-110) H 01/03/19 05:50 Calcium 8.4 mg/dL (8.4-10.2) 01/03/19 05:50 25-OH Vitamin D Total 68.1 NG/ML (30.0-100.0) 01/02/19 04:12 Urine Color Yellow (YELLOW) 01/02/19 18:54 Urine Clarity Clear (Clear) 01/02/19 18:54 Urine pH 6.0 (5.0-8.0) 01/02/19 18:54 Ur Specific [place] 1.013 (1.003-1.030) 01/02/19 18:54 Urine Protein Negative mg/dL (NEGATIVE) 01/02/19 18:54 Urine Glucose (UA) Neg mg/dL (NEGATIVE) 01/02/19 18:54 Urine Ketones Negative mg/dL (NEGATIVE) 01/02/19 18:54 Urine Blood Negative (NEGATIVE) 01/02/19 18:54 Urine Nitrate Negative (NEGATIVE) 01/02/19 18:54 Urine Bilirubin Negative (NEGATIVE) 01/02/19 18:54 Urine Urobilinogen 0.2-1.0 mg/dL (0.2-1.0) 01/02/19 18:54 Ur Leukocyte Esterase Neg [place]/uL (Negative) 01/02/19 18:54 Urine RBC (Auto) < 1 /hpf (0-3) 01/02/19 18:54 Urine Microscopic WBC 1 /hpf (0-5) 01/02/19 18:54 Blood Type A POSITIVE 01/01/19 07:35 Blood Type Confirm A POSITIVE 01/01/19 09:43 Antibody Screen Negative 01/01/19 07:35 Crossmatch See Detail 01/01/19 07:35 BBK History Checked No verified bt 01/01/19 07:35 Attending/Attestation - Attestation I have personally seen and examined this patient.: Yes I have fully participated in the care of the patient.: Yes I have reviewed all pertinent clinical information, including history, physical exam and plan: Yes Notes (Text): Right Hip Primary Osteoarthritis s/p Right THR Mild Acute Blood Loss Anemia post DM type II HTN -Surgery done by Dr Yoder - pt failed conservative mgt - Pain controlled -PT/OT consulted - plan for TCU placement - DVT proph- Lovenox - accucheck with coverage -hold off on oral hypoglycemics bec glucose low normal - cont Losartan - start Ferrous - Colace bid
[2019-01-03] MEDS: Docusate-Senna 50 mg-8.6 mg Tab PO SCH (21:56)
[2019-01-04 07:06] LABS: BASO % 0.2 % (0.0-2.0); EOS # 0.1 K/uL (0.0-0.7); EOS % 0.8 % (0.0-4.0); HEMOGLOBIN 9.3 g/dL (12.0-18.0); LYMPH # 1.3 K/uL (1.0-4.3); LYMPH % 15.2 % (20.0-40.0); MEAN CELL VOLUME 91.9 fl (80.0-94.0); MEAN CORPUSCULAR HEMOGLOBIN 32.7 pg (27.0-31.0); MEAN CORPUSCULAR HGB CONC 35.6 g/dL (33.0-37.0); MEAN PLATELET VOLUME 7.9 fl (7.2-11.7); MONO # 0.8 K/uL (0.0-0.8); MONO % 8.9 % (0.0-10.0); NEUT # 6.4 K/uL (1.8-7.0); NEUT % 74.9 % (50.0-75.0); RBC 2.86 Mil/uL (4.40-5.90); RED CELL DISTRIBUTION WIDTH 12.4 % (11.5-14.5); WHITE BLOOD COUNT 8.6 K/uL (4.8-10.8)
[2019-01-04] MEDS: Insulin Lispro (humaLOG) 100 Units/ml Inj SC SCH ×4 (09:06→22:12)
[2019-01-04] MEDS: Pantoprazole 40 mg EC Tab PO SCH (09:13)
[2019-01-04] MEDS: Enoxaparin 40 mg Syringe SC SCH (09:14)
[2019-01-04] MEDS: Multivitamin With Minerals Tab PO SCH (09:15)
--- NOTE | 2019-01-04 10:14 | CP.PCM.PN ---
Subjective - Date & Time of Evaluation Date of Evaluation: 01/04/19 Time of Evaluation: 10:11 - Subjective Subjective: Patient states pain is improving. He is doing well with PT. Denies CP/SOB/dizziness. Urinary symptoms have resolved. Using IS. No new complaints. Objective - Vital Signs/Intake and Output Vital Signs (last 24 hours): Temp Pulse Resp BP Pulse Ox 98.6 F 88 19 127/70 96 01/04/19 09:00 01/04/19 09:15 01/04/19 09:00 01/04/19 09:15 01/04/19 09:00 - Medications Medications: Current Medications Enoxaparin Sodium (Lovenox) 40 mg SC DAILY [facility]; Protocol Last Admin: 01/04/19 09:14 Dose: 40 mg Ferrous Sulfate (Feosol) 325 mg PO BID [facility] Last Admin: 01/04/19 09:13 Dose: 325 mg Folic Acid (Folic Acid) 1 mg PO DAILY [facility] Last Admin: 01/04/19 09:13 Dose: 1 mg Lactated Ringer's (Lactated Ringer's) 1,000 mls @ 75 mls/hr IV .[id number] [facility] Insulin Human Lispro (Humalog) 0 units SC ACHS [facility]; Protocol Last Admin: 01/04/19 09:06 Dose: Not Given Losartan Potassium (Cozaar) 25 mg PO DAILY [facility] Last Admin: 01/04/19 09:15 Dose: 25 mg Morphine Sulfate (Morphine) 2 mg IVP Q4 PRN PRN Reason: Pain, severe (8-10) Multivitamins/Minerals (Therapeutic-M Tab) 1 tab PO DAILY [facility] Last Admin: 01/04/19 09:15 Dose: 1 tab Ondansetron HCl (Zofran Inj) 4 mg IVP Q4 PRN PRN Reason: Nausea/Vomiting Oxycodone HCl (Oxycodone Immediate Release Tab) 10 mg PO Q4 PRN PRN Reason: Pain, moderate (4-7) Last Admin: 01/02/19 21:04 Dose: 10 mg Oxycodone HCl (Oxycodone Immediate Release Tab) 5 mg PO Q4 PRN PRN Reason: Pain, Mild (1-3) Pantoprazole Sodium (Protonix Ec Tab) 40 mg PO DAILY [facility] Last Admin: 01/04/19 09:13 Dose: 40 mg Senna/Docusate Sodium (Senokot S 50 Mg-8.6 Mg) 2 tab PO HS MICKIE Last Admin: 01/03/19 21:56 Dose: 2 tab - Labs Labs: 01/04/19 07:03 01/03/19 05:50 - Extremities Exam Additional comments: right hip: dressing changed. Incision intact, scant serous drainage on dressing. No erythema. Thigh swollen but soft. +ROM ankle/toes, sensation intact, +DP/PT pulses calves soft NT neg homans Assessment and Plan (1) Osteoarthritis of right hip Assessment & Plan: POD#3 s/p R THR d/c planning cont VTE proph PT/OT labs reviewed d/w Dr. Yoder, agrees with above Status: Acute
--- NOTE | 2019-01-04 15:25 | CP.PCM.PN ---
Subjective - Date & Time of Evaluation Date of Evaluation: 01/04/19 Time of Evaluation: 15:25 - Subjective Subjective: Patient seen and evaluated at bedside. Patient resting comfortably, denies any acute events overnight. Patient states pain is well controlled at this time. He states that he successfully participating in physical therapy today and that it continues to help with his mobility. Denies nausea/vomiting/fever/shortness of breath. Objective - Vital Signs/Intake and Output Vital Signs (last 24 hours): Temp Pulse Resp BP Pulse Ox 98.6 F 74 18 118/68 96 01/04/19 13:00 01/04/19 13:00 01/04/19 13:00 01/04/19 13:00 01/04/19 13:00 - Medications Medications: Current Medications Enoxaparin Sodium (Lovenox) 40 mg SC DAILY [facility]; Protocol Last Admin: 01/04/19 09:14 Dose: 40 mg Ferrous Sulfate (Feosol) 325 mg PO BID [facility] Last Admin: 01/04/19 09:13 Dose: 325 mg Folic Acid (Folic Acid) 1 mg PO DAILY [facility] Last Admin: 01/04/19 09:13 Dose: 1 mg Lactated Ringer's (Lactated Ringer's) 1,000 mls @ 75 mls/hr IV .[id number] [facility] Insulin Human Lispro (Humalog) 0 units SC [facility]; Protocol Last Admin: 01/04/19 11:52 Dose: 2 units Losartan Potassium (Cozaar) 25 mg PO DAILY [facility] Last Admin: 01/04/19 09:15 Dose: 25 mg Morphine Sulfate (Morphine) 2 mg IVP Q4 PRN PRN Reason: Pain, severe (8-10) Multivitamins/Minerals (Therapeutic-M Tab) 1 tab PO DAILY [facility] Last Admin: 01/04/19 09:15 Dose: 1 tab Ondansetron HCl (Zofran Inj) 4 mg IVP Q4 PRN PRN Reason: Nausea/Vomiting Oxycodone HCl (Oxycodone Immediate Release Tab) 10 mg PO Q4 PRN PRN Reason: Pain, moderate (4-7) Last Admin: 01/02/19 21:04 Dose: 10 mg Oxycodone HCl (Oxycodone Immediate Release Tab) 5 mg PO Q4 PRN PRN Reason: Pain, Mild (1-3) Pantoprazole Sodium (Protonix Ec Tab) 40 mg PO DAILY [facility] Last Admin: 01/04/19 09:13 Dose: 40 mg Senna/Docusate Sodium (Senokot S 50 Mg-8.6 Mg) 2 tab PO HS [facility] Last Admin: 01/03/19 21:56 Dose: 2 tab - Labs Labs: 01/04/19 07:03 01/03/19 05:50 - Constitutional Appears: Non-toxic, No Acute Distress - Head Exam Head Exam: ATRAUMATIC, NORMOCEPHALIC - Eye Exam Eye Exam: Normal appearance Pupil Exam: NORMAL ACCOMODATION - ENT Exam ENT Exam: Mucous Membranes Moist - Respiratory Exam Respiratory Exam: Clear to Ausculation Bilateral, NORMAL BREATHING PATTERN - Cardiovascular Exam Cardiovascular Exam: REGULAR RHYTHM - GI/Abdominal Exam GI & Abdominal Exam: Soft, Normal Bowel Sounds - Extremities Exam Additional comments: Lower extremity dressing clean/dry/intact - Back Exam Back Exam: NORMAL INSPECTION - Neurological Exam Neurological Exam: Alert, Awake, Oriented x3 - Psychiatric Exam Psychiatric exam: Normal Affect, Normal Mood - Skin Skin Exam: Warm Assessment and Plan - Assessment and Plan (Free Text) Assessment: 78 year old male patient, with PMHx of DM, HTN, GERD, with POD#3 R THR Plan: 1) Right hip osteoarthritis - Acute - POD#[address] Yoder - C/w pain management - C/w physical therapy - D/c planning to TCU, waiting for authorization 2) DMII - Chronic - ACHS - Sliding scale 3) HTN - Chronic - C/w Losartan 4) BPH - Chronic 4) DVT prophylaxis: - SCDs - Lovenox 40mg SC 5) Code status - Full code - Surrogate decision maker-spouse Gayathri
[2019-01-04] MEDS: oxyCODONE 10 mg Immediate Release Tab PO PRN (15:29)
[2019-01-04] MEDS: Docusate-Senna 50 mg-8.6 mg Tab PO SCH (22:10)
[2019-01-05] MEDS: Insulin Lispro (humaLOG) 100 Units/ml Inj SC SCH (07:53)
[2019-01-05] MEDS: Enoxaparin 40 mg Syringe SC SCH (08:33)
[2019-01-05] MEDS: Pantoprazole 40 mg EC Tab PO SCH (08:34)
[2019-01-05] MEDS: Multivitamin With Minerals Tab PO SCH (08:34)
--- NOTE | 2019-01-05 09:28 | CP.PCM.PN ---
Subjective - Date & Time of Evaluation Date of Evaluation: 01/05/19 Time of Evaluation: 09:28 - Subjective Subjective: Patient seen and evaluated POD#[address] Yoder. Patient resting comfortably and in NAD. Patient states that he had a small fever overnight, however feels well this morning. He denies any pain to his right lower extremity, just feels some mild pressure to the hip and thigh region. Denies nausea/vomiting/fever/shortness of breath/chest pain. Objective - Vital Signs/Intake and Output Vital Signs (last 24 hours): Temp Pulse Resp BP Pulse Ox 98.5 F 88 20 128/79 95 01/05/19 08:18 01/05/19 08:33 01/05/19 08:18 01/05/19 08:33 01/05/19 08:18 - Medications Medications: Current Medications Acetaminophen (Tylenol 325mg Tab) 650 mg PO Q6 PRN PRN Reason: Fever >100.4 F Last Admin: 01/05/19 08:39 Dose: 650 mg Enoxaparin Sodium (Lovenox) 40 mg SC DAILY [facility]; Protocol Last Admin: 01/05/19 08:33 Dose: 40 mg Ferrous Sulfate (Feosol) 325 mg PO BID [facility] Last Admin: 01/05/19 08:32 Dose: 325 mg Folic Acid (Folic Acid) 1 mg PO DAILY [facility] Last Admin: 01/05/19 08:33 Dose: 1 mg Lactated Ringer's (Lactated Ringer's) 1,000 mls @ 75 mls/hr IV .[id number] [facility] Insulin Human Lispro (Humalog) 0 units SC ACHS [facility]; Protocol Last Admin: 01/05/19 07:53 Dose: 2 units Losartan Potassium (Cozaar) 25 mg PO DAILY [facility] Last Admin: 01/05/19 08:33 Dose: 25 mg Morphine Sulfate (Morphine) 2 mg IVP Q4 PRN PRN Reason: Pain, severe (8-10) Multivitamins/Minerals (Therapeutic-M Tab) 1 tab PO DAILY [facility] Last Admin: 01/05/19 08:34 Dose: 1 tab Ondansetron HCl (Zofran Inj) 4 mg IVP Q4 PRN PRN Reason: Nausea/Vomiting Oxycodone HCl (Oxycodone Immediate Release Tab) 10 mg PO Q4 PRN PRN Reason: Pain, moderate (4-7) Last Admin: 01/04/19 15:29 Dose: 10 mg Oxycodone HCl (Oxycodone Immediate Release Tab) 5 mg PO Q4 PRN PRN Reason: Pain, Mild (1-3) Pantoprazole Sodium (Protonix Ec Tab) 40 mg PO DAILY [facility] Last Admin: 01/05/19 08:34 Dose: 40 mg Senna/Docusate Sodium (Senokot S 50 Mg-8.6 Mg) 2 tab PO HS [facility] Last Admin: 01/04/19 22:10 Dose: 2 tab - Labs Labs: 01/04/19 07:03 01/03/19 05:50 - Constitutional Appears: Non-toxic, No Acute Distress - Head Exam Head Exam: ATRAUMATIC, NORMOCEPHALIC - Eye Exam Eye Exam: Normal appearance Pupil Exam: NORMAL ACCOMODATION - ENT Exam ENT Exam: Mucous Membranes Moist - Respiratory Exam Respiratory Exam: Clear to Ausculation Bilateral, NORMAL BREATHING PATTERN - Cardiovascular Exam Cardiovascular Exam: REGULAR RHYTHM - GI/Abdominal Exam GI & Abdominal Exam: Soft, Normal Bowel Sounds. absent: Tenderness - Extremities Exam Additional comments: Right lower extremity dressing clean/dry/intact - Neurological Exam Neurological Exam: Alert, Awake, Oriented x3 - Psychiatric Exam Psychiatric exam: Normal Affect, Normal Mood - Skin Skin Exam: Warm Assessment and Plan - Assessment and Plan (Free Text) Assessment: 78 year old male patient, with PMHx of DM, HTN, GERD, with POD#4 R THR Plan: 1) Right hip osteoarthritis - Acute - POD#[address] Yoder, follow up with Dr. Yoder as outpatient - C/w pain management - C/w physical therapy, home PT - D/c to home 2) Acute blood loss anemia - Acute - Hgb trending down, 9.3 today - C/w ferrous sulfate 3) DMII - Chronic - ACHS - Sliding scale 4) HTN - Chronic - C/w Losartan 5) BPH - Chronic 6) DVT prophylaxis: - SCDs - Lovenox 40mg SC 7) Code status - Full code - Surrogate decision maker-spouse Gayathri
--- NOTE | 2019-01-05 10:06 | CP.PCM.PN ---
Subjective - Date & Time of Evaluation Date of Evaluation: 01/05/19 Time of Evaluation: 10:05 - Subjective Subjective: Patient states he feels good today. Denies CP/SOB/dizziness/urinary sx/numbness/tingling. Objective - Vital Signs/Intake and Output Vital Signs (last 24 hours): Temp Pulse Resp BP Pulse Ox 98.5 F 88 20 128/79 95 01/05/19 08:18 01/05/19 08:33 01/05/19 08:18 01/05/19 08:33 01/05/19 08:18 - Medications Medications: Current Medications Acetaminophen (Tylenol 325mg Tab) 650 mg PO Q6 PRN PRN Reason: Fever >100.4 F Last Admin: 01/05/19 08:39 Dose: 650 mg Enoxaparin Sodium (Lovenox) 40 mg SC DAILY [facility]; Protocol Last Admin: 01/05/19 08:33 Dose: 40 mg Ferrous Sulfate (Feosol) 325 mg PO BID [facility] Last Admin: 01/05/19 08:32 Dose: 325 mg Folic Acid (Folic Acid) 1 mg PO DAILY [facility] Last Admin: 01/05/19 08:33 Dose: 1 mg Lactated Ringer's (Lactated Ringer's) 1,000 mls @ 75 mls/hr IV .[id number] [facility] Insulin Human Lispro (Humalog) 0 units SC ACHS [facility]; Protocol Last Admin: 01/05/19 07:53 Dose: 2 units Losartan Potassium (Cozaar) 25 mg PO DAILY [facility] Last Admin: 01/05/19 08:33 Dose: 25 mg Morphine Sulfate (Morphine) 2 mg IVP Q4 PRN PRN Reason: Pain, severe (8-10) Multivitamins/Minerals (Therapeutic-M Tab) 1 tab PO DAILY [facility] Last Admin: 01/05/19 08:34 Dose: 1 tab Ondansetron HCl (Zofran Inj) 4 mg IVP Q4 PRN PRN Reason: Nausea/Vomiting Oxycodone HCl (Oxycodone Immediate Release Tab) 10 mg PO Q4 PRN PRN Reason: Pain, moderate (4-7) Last Admin: 01/04/19 15:29 Dose: 10 mg Oxycodone HCl (Oxycodone Immediate Release Tab) 5 mg PO Q4 PRN PRN Reason: Pain, Mild (1-3) Pantoprazole Sodium (Protonix Ec Tab) 40 mg PO DAILY [facility] Last Admin: 01/05/19 08:34 Dose: 40 mg Senna/Docusate Sodium (Senokot S 50 Mg-8.6 Mg) 2 tab PO HS [facility] Last Admin: 01/04/19 22:10 Dose: 2 tab - Labs Labs: 01/04/19 07:03 01/03/19 05:50 - Extremities Exam Additional comments: Right hip: mild serous drainage, no erythema, thigh moderately swollen as expe cted, soft, mildly tender. Sensation itnact +DP/PT pulses calves soft NT neg homans +DP/PT pulses Assessment and Plan (1) Osteoarthritis of right hip Assessment & Plan: POD#4 s/p THR d/w Dr. Yoder, states patient to continue lovenox 40mg SQ x 7 more days, then will f/u in office next tuesday and will likely be changed to aspirin at that time ortho stable for d/c home, TCU denied by insurance f/u in office in one week pain medication per primary team d/w Dr. Yoder, agrees with above Status: Acute
[2019-01-05 11:34] VITALS: BP 120/70; RESP 20; TEMP 98; O2SAT 95
[2019-01-05 11:39] VITALS: PULSE 62
== END 2019-01-05 14:18 | disposition home health service (06) | DRG 470 ==
LOC: H.OPSURG 06:49 → H.MEDSURG1 14:46
PROVIDERS: ADMIT Internal Medicine; ATTEND Internal Medicine
PROC: 8E0WXBZ Computer Assisted Procedure of Trunk Region (ICD-10-PCS; 2019-01-01)
PROC: 0SR904Z Replacement of Right Hip Joint with Ceramic on Polyethylene Synthetic Substitute, Open Approach (ICD-10-PCS; principal; 2019-01-01 10:45)
PROC: F07Z9FZ Gait Training/Functional Ambulation Treatment using Assistive, Adaptive, Supportive or Protective Equipment (ICD-10-PCS; 2019-01-02)
DX: M16.11 Unilateral primary osteoarthritis, right hip (principal); D62 Acute posthemorrhagic anemia; M16.51 Unilateral post-traumatic osteoarthritis, right hip; M65.851 Other synovitis and tenosynovitis, right thigh; M25.851 Other specified joint disorders, right hip; I10 Essential (primary) hypertension; R33.8 Other retention of urine; K21.9 Gastro-esophageal reflux disease without esophagitis; E11.9 Type 2 diabetes mellitus without complications; E78.5 Hyperlipidemia, unspecified; G47.30 Sleep apnea, unspecified; N40.0 Benign prostatic hyperplasia without lower urinary tract symptoms; Z72.0 Tobacco use; Z79.84 Long term (current) use of oral hypoglycemic drugs; Z79.82 Long term (current) use of aspirin; Z88.1 Allergy status to other antibiotic agents; Z91.011 Allergy to milk products